=== PATIENT | female | born 1985 ===

== ENCOUNTER 2021-07-22 22:19 | Emergency (ER) | payer OTHER ==
[~2021-07-22] VITALS: Ht 157.5 cm; Wt 73.0 kg
[2021-07-23] MEDS ORDERED: LODINE CAP 300300 MG PO (01:36)
[2021-07-23] MEDS ORDERED: PROVENTIL HFA6.7 GM INH (01:36)
[2021-07-23] MEDS ORDERED: ZOFRAN ODT 4 MG4 MG PO (01:36)
== END 2021-07-23 03:04 | disposition home or self-care (01) ==
LOC: ER1 22:19
DX: U07.1 COVID-19 (principal); E11.9 Type 2 diabetes mellitus without complications
CPT/HCPCS: 99283